=== PATIENT | female | born 1995 | race Caucasian/White ===

== ENCOUNTER 2016-11-13 09:47 | Emergency (ER) | payer MEDICAID, OTHER ==
[~2016-11-13] VITALS: Ht 162.6 cm; Wt 59.0 kg
[2016-11-13 09:50] VITALS: BP 121/58; PULSE 80; RESP 16; TEMP 97.8; O2SAT 99
[2016-11-13 10:43] LABS: AUTOMATED NEUTROPHIL # 4.4 TH/MM3 (1.8-7.7); BASOPHIL % 0.7 % (0.0-2.0); EOSINOPHIL # 0.2 TH/MM3 (0-0.4); EOSINOPHIL % 2.8 % (0.0-4.0); HEMATOCRIT 40.1 % (35.0-46.0); HEMO FLAGS DIFF FINAL; LYMPH % 25.5 % (9.0-44.0); LYMPHOCYTE # 1.8 TH/MM3 (1.0-4.8); MEAN CELL VOLUME 92.5 FL (80.0-100.0); MEAN CORPUSCULAR HEMOGLOBIN 31.3 PG (27.0-34.0); MEAN CORPUSCULAR HGB CONC 33.9 % (32.0-36.0); MONO % 7.1 % (0.0-8.0); NEUT % 63.9 % (16.0-70.0); PLATELET COUNT 311 TH/MM3 (150-450); RED BLOOD COUNT 4.33 MIL/MM3 (4.00-5.30); RED CELL DISTRIBUTION WIDTH 12.6 % (11.6-17.2); WHITE BLOOD COUNT 6.9 TH/MM3 (4.0-11.0)
--- NOTE | 2016-11-13 11:20 | PD ---
HPI Chief Complaint: Cabinet Finisher Problem/Complaint Time Seen by Provider: 11:19 Travel History International Travel<30 days: No Contact w/Intl Traveler<30days: No Traveled to known affect area: No History of Present Illness HPI 21-year-old female with history of endometriosis presents to EMERGENCY department for evaluation of right lower abdominal pain. Patient states that she recently found out that she was . She believes she is approximately 8 weeks gestation. She has appointment to follow-up with loose cough less but it is not for some time. She states this morning she has been having significant lower abdominal cramping with no vaginal bleeding or discharge. She believes it is secondary to her endometriosis however she was advised by her sister to come to [facility] department. She also believes she may have a yeast infection. Denies any nausea or vomiting. No fevers or chills. No other symptoms at this time. PFSH Past Medical History ?: LMP: 09/21/16 Social History Alcohol Use: Yes Tobacco Use: Yes Substance Use: Yes Allergies-Medications (Allergen,Severity, Reaction): Coded Allergies: No Known Allergies (Unverified , 11/13/16) Reported Meds & Prescriptions Reported Meds & Active Scripts Active Keflex (Cephalexin) 500 Mg Cap 500 Mg PO Q12H 7 Days Review of Systems Except as stated in HPI: all other systems reviewed are Neg Physical Exam Narrative GENERAL: Well-nourished female patient, ambulatory and in no acute distress SKIN: Warm and dry. HEAD: Atraumatic. Normocephalic. EYES: Pupils equal and round. No scleral icterus. No injection or drainage. ENT: No nasal bleeding or discharge. Mucous membranes pink and moist. NECK: Trachea midline. No JVD. CARDIOVASCULAR: Regular rate and rhythm. No murmur appreciated. RESPIRATORY: No accessory muscle use. Clear to auscultation. Breath sounds equal bilaterally. GASTROINTESTINAL: Abdomen soft, non-tender, nondistended. Hepatic and splenic margins not palpable. MUSCULOSKELETAL: No obvious deformities. No clubbing. No cyanosis. No edema. NEUROLOGICAL: Awake and alert. No obvious cranial nerve deficits. Motor grossly within normal limits. Normal speech. PSYCHIATRIC: Appropriate mood and affect; insight and judgment normal. Data Data Last Documented VS Vital Signs Date Time Temp Pulse Resp B/P Pulse Ox O2 Delivery O2 Flow Rate FiO2 11/13/16 09:50 97.8 80 16 121/58 99 Room Air Orders Complete Blood Count With Diff (11/13/16 10:07) Ed Urine Pregnancytest Poc (11/13/16 10:07) Beta Hcg (Quant/Titer) (11/13/16 11:16) Comprehensive Metabolic Panel (11/13/16 11:16) Urinalysis - C+S If Indicated (11/13/16 11:16) Complete Rh (11/13/16 11:20) Urine Culture (11/13/16 11:30) Us Pelvis (Ques Pr/Ect)W Trans (11/13/16 ) Labs Laboratory Tests Test 11/13/16 11/13/16 11/13/16 10:23 11:30 11:36 White Blood Count 6.9 TH/MM3 Red Blood Count 4.33 MIL/MM3 Hemoglobin 13.6 GM/DL Hematocrit 40.1 % Mean Corpuscular Volume 92.5 FL Mean Corpuscular Hemoglobin 31.3 PG Mean Corpuscular Hemoglobin 33.9 % Concent Red Cell Distribution Width 12.6 % Platelet Count 311 TH/MM3 Mean Platelet Volume 7.8 FL Neutrophils (%) (Auto) 63.9 % Lymphocytes (%) (Auto) 25.5 % Monocytes (%) (Auto) 7.1 % Eosinophils (%) (Auto) 2.8 % Basophils (%) (Auto) 0.7 % Neutrophils # (Auto) 4.4 TH/MM3 Lymphocytes # (Auto) 1.8 TH/MM3 Monocytes # (Auto) 0.5 TH/MM3 Eosinophils # (Auto) 0.2 TH/MM3 Basophils # (Auto) 0.0 TH/MM3 CBC Comment DIFF FINAL Differential Comment Urine Color LIGHT-YELLOW Urine Turbidity CLEAR Urine pH 7.0 Urine Specific Marks 1.003 Urine Protein NEG mg/dL Urine Glucose (UA) NEG mg/dL Urine Ketones NEG mg/dL Urine Occult Blood NEG Urine Nitrite NEG Urine Bilirubin NEG Urine Urobilinogen LESS THAN 2.0 MG/DL Urine Leukocyte Esterase MOD Urine RBC 1 /hpf Urine WBC 11 /hpf Urine Squamous Epithelial 6 /hpf Cells Urine Bacteria MANY /hpf Microscopic Urinalysis Comment CULTURE INDICATED Sodium Level 138 MEQ/L Potassium Level 3.7 MEQ/L Chloride Level 104 MEQ/L Carbon Dioxide Level 24.7 MEQ/L Anion Gap 9 MEQ/L Blood Urea Nitrogen 4 MG/DL Creatinine 0.60 MG/DL Estimat Glomerular Filtration 124 ML/MIN Rate Random Glucose 83 MG/DL Calcium Level 8.9 MG/DL Total Bilirubin 0.5 MG/DL Aspartate Amino Transf 13 U/L (AST/SGOT) Alanine Aminotransferase 15 U/L (ALT/SGPT) Alkaline Phosphatase 59 U/L Total Protein 7.9 GM/DL Albumin 4.2 GM/DL Human Chorionic Gonadotropin, 79388 MIU/ML Quant Blood Type A POSITIVE Rho(D) Type POSITIVE MDM Medical Decision Making Medical Screen Exam Complete: Yes Emergency Medical Condition: Yes Medical Record Reviewed: Yes Differential Diagnosis Intrauterine versus ectopic versus UTI versus endometriosis Narrative Course 21-year-old female presents to the emergency department for evaluation. Patient was initially protocoled by nursing staff. After I saw and evaluated her, additional workup was initiated in triage. Once a medical bed becomes available, patient will be transferred and care assumed by that provider Last Impressions Pelvis Ultrasound 11/13/16 0000 Signed Impressions: Service Date/Time: Sunday, November 13, 2016 12:12 - CONCLUSION: 1. 6 week 5 day intrauterine gestation with heart rate of 147 beats per minute. 2. 1.5 cm simple cyst involving the right ovary likely corpus luteal in etiology. 3. Trace amount of free fluid in the cul-de-sac. Haris España Jr., MD 1236 US done at bedside; I discussed with vp lab. IUP + HR. CBC and CMP are without acute concern. Beta hCG is 11,245. Discussed pt with Dr. Ray, pt will be discharged to follow up with her medical logistics specialist at [facility] Diagnosis Primary Impression: Abdominal pain during intrauterine Additional Impression: UTI (urinary tract infection) during Qualified Code: O23.41 - UTI (urinary tract infection) during , first trimester Referrals: VOLUSIA SULFUR BURNER Patient Instructions: General Instructions, Urinary Tract Infection in (ED) Additional Instructions: Maintain adequate oral hydration Follow-up with her primary care provider Make sure to keep appointment with SULFUR BURNER Return immediately to the emergency department with any acute worsening of symptoms Med/Other Pt SpecificInfo: Prescription(s) given Scripts Cephalexin (Keflex)500 Mg Qhi514 Mg PO Q12H 7 Days Ref 0 Prov:Namrata Blevins 11/13/16 Disposition: 01 DISCHARGE HOME Condition: Stable Namrata Blevins Nov 13, 2016 11:20
[2016-11-13 12:02] LABS: BACTERIA, URINE MANY /hpf; BLOOD, URINE NEG (NEG); GLUCOSE,URINE NEG (NEG); KETONE, URINE NEG (NEG); NITRITE,URINE NEG (NEG); SQUAMOUS EPITHELIAL CELL URINE 6 /hpf (0-5); URINE COLOR LIGHT-YELLOW (YELLW/STRAW)
[2016-11-13 12:03] LABS: COMMENT (UR) CULTURE INDICATED; CULTURE IF INDICATED CULTURE INDICATED
[2016-11-13 12:15] LABS: ANION GAP 9 MEQ/L (5-15); AST (GOT) 13 U/L (15-37); BICARBONATE 24.7 MEQ/L (21.0-32.0); BLOOD UREA NITROGEN 4 MG/DL (7-18); CHLORIDE 104 MEQ/L (98-107); GLOMERULAR FILTRATION RATE 124 ML/MIN (>89); POTASSIUM 3.7 MEQ/L (3.5-5.1); SODIUM (NA) 138 MEQ/L (136-145)
[2016-11-13 12:32] LABS: ALKALINE PHOSPHATASE 59 U/L (45-117); ALT (GPT) 15 U/L (10-53); BETA HCG QUANT 11245 MIU/ML (0-5); TOTAL BILIRUBIN ADULT 0.5 MG/DL (0.2-1.0)
[2016-11-13] MEDS ORDERED: CEPH-460 PO (12:39)
--- NOTE | 2016-11-13 13:55 | RADRPT ---
EXAM DATE/TIME: 11/13/2016 12:12 [place] COMPARISON: No previous studies available for comparison. INDICATIONS : Pelvic pain. LAB(S): Beta-hC,245 MEDICAL HISTORY : . SURGICAL HISTORY : None. ENCOUNTER: Initial ACUITY: 1 day PAIN SCORE: 5/10 LOCATION: Right pelvis MEASUREMENTS: UTERUS: 9.4 x 5.2 x 7.6 cm ENDOMETRIAL STRIPE: 14 mm RIGHT OVARY: 4.4 x 2.7 x 3.0 cm LEFT OVARY: 2.5 x 2.6 x 2.9 cm FINDINGS: UTERUS: A solitary intrauterine gestation is seen. A well-formed gestational sac and yolk sac observed. pole noted. [employer]-rump length is 0.80 cm which equals 6 weeks 5 days gestational age. heart ra te is 147 beats per minute. Uterus is mildly anteverted. RIGHT OVARY: A simple cyst is seen involving the right ovary. This measures 1.5 cm in diameter. LEFT OVARY: Ovary contains no mass or significant cystic lesion. MISCELLANEOUS: A trace amount of free fluid within the cul-de-sac. CONCLUSION: 1. 6 week 5 day intrauterine gestation with heart rate of 147 beats per minute. 2. 1.5 cm simple cyst involving the right ovary likely corpus luteal in etiology. 3. Trace amount of free fluid in the cul-de-sac. Haris España Jr., MD on November 13, 2016 at 13:49 Board Certified Radiologist. This report was verified electronically.
== END 2016-11-13 12:58 | disposition home or self-care (01) ==
LOC: NETRI 09:47
DX: O23.41 Unspecified infection of urinary tract in pregnancy, first trimester (principal); O34.81 Maternal care for other abnormalities of pelvic organs, first trimester; N83.201 Unspecified ovarian cyst, right side; Z3A.01 Less than 8 weeks gestation of pregnancy; B96.20 Unspecified Escherichia coli [E. coli] as the cause of diseases classified elsewhere
CPT/HCPCS: 76700; 76817; 80053; 81001; 84702; 84703; 85025; 86901; 87077; 87086; 87186